=== PATIENT | female | born 1965 | race Caucasian/White ===

== ENCOUNTER 2023-03-26 16:12 | Outpatient (REF) | payer MEDICAID, SELFPAY ==
[2023-03-31 08:42] LABS: Alphahydroxymidazolam,GCMS Ur NEGATIVE; Alphahydroxytriazolam, GCMS Ur NEGATIVE; Alprazolam, GCMS Urine NEGATIVE; Flurazepam Metabolite,GCMS Ur NEGATIVE; Lorazepam GCMS Urine NEGATIVE; Nordiazepam, GCMS Urine NEGATIVE; Oxazepam, GCMS Urine NEGATIVE; Temazepam, GCMS Urine NEGATIVE
[2023-04-02 08:39] LABS: Fentanyl, Ur >500.0 (H); Norfentanyl, Ur >500.0 (H)
== END 2023-03-26 16:13 | disposition home or self-care (01) ==
LOC: HO.HHCLNP 16:12
PROVIDERS: Visit Provider Internal Medicine
DX: F41.9 Anxiety disorder, unspecified (principal)
CPT/HCPCS: 80346; 80354